=== PATIENT | female | born 1955 | race Caucasian/White ===

== ENCOUNTER 2019-02-25 10:06 | Day surgery (SDC) | payer MEDICARE, MEDICAID ==
[~2019-02-25] VITALS: Ht 165.1 cm; Wt 39.1 kg
[2019-02-25 10:55] VITALS: BP 130/79; Ht 165.1 cm; Wt 39.1 kg
[2019-02-25 11:11] LABS: CALC OSMOLALITY 286 mosm/kg (275-300); CALCIUM 9.5 mg/dL (8.5-10.1); CARBON DIOXIDE 35.7 mmol/L (21.0-32.0); CHLORIDE - SERUM 104 mmol/L (98-107); CREATININE - SERUM 0.6 mg/dL (0.6-1.3); GLUCOSE 85 mg/dL (74-106); POTASSIUM - SERUM 3.9 mmol/L (3.5-5.1); SODIUM 145 mmol/L (136-145); UREA NITROGEN 9 mg/dL (7-18); eGFR NON AFRICAN AMERICAN > 90 mL/min (90-120)
[2019-02-25 11:18] LABS: BASOPHILS 0.2 % (0-2); EOSINOPHILS 4.4 % (0-7); HEMATOCRIT 42.3 % (36.0-48.0); HEMOGLOBIN 13.9 g/dL (12-16); IMMATURE GRANULOCYTES 0.2 % (0-5); LYMPHOCYTES 26.3 % (15-50); MCH 30.3 pg (26.0-34.0); MCHC 32.9 g/dL (31.0-37.0); MCV 92.2 fL (80.0-100.0); MEAN PLATELET VOLUME 10.6 fL (7.4-10.4); MONOCYTES 6.8 % (2-11); NEUTROPHILS 62.1 % (40-80); PLATELET COUNT 175 10x3/uL (130-400); RBC 4.59 10x6/uL (4.00-5.40); RDW 14.1 % (11.5-14.5); WBC 5.4 10x3/uL (4.8-10.8)
[2019-02-25] MEDS ORDERED: ANORO ELLIPTA1 EACH INH ×2 (11:28→11:36)
[2019-02-25] MEDS ORDERED: ABILIFY2 MG PO (11:29)
[2019-02-25] MEDS ORDERED: CELEXA20 MG PO (11:31)
--- NOTE | 2019-02-25 13:40 | NUR ---
PT DC INSTRUCTIONS REVIEWED AT THIS TIME, PT VERBALIZES UNDERSTANDING AND AGREES. PT IV REMOVED AT THIS TIME, INTACT, NO REDNESS OR SWELLING NOTED AT SITE.
--- NOTE | 2019-02-25 13:47 | NUR ---
PT LEAVING OPS UNIT AT THIS TIME.
--- NOTE | 2019-03-01 16:05 | OP ---
PATIENT NAME: KEILY RODRIGUEZ MEDICAL RECORD: [id number] LOCATION:[facility] ADMISSION DATE: SURGEON: OSVALDO SHARMA DO DATE OF OPERATION: 02/25/2019 PROCEDURE: Colonoscopy with polypectomy. INDICATION FOR PROCEDURE: Hematochezia, gas, and bloating. SCOPE: [facility] video pediatric colonoscope. MEDICATIONS: Propofol 550 mg IV per anesthesia. WITHDRAWAL TIME: 24 minutes. ESTIMATED BLOOD LOSS: Minimal. COMPLICATIONS: None. FINDINGS: Informed consent was given. The patient was made comfortable with the above medication. After reaching an adequate level of sedation by slow IV push, the patient was placed on her left side. A digital rectal examination was performed and revealed some external hemorrhoids. The endoscope was advanced under direct visualization through the rectum to the cecum, confirmed by the presence of the appendiceal orifice and the ileocecal valve. The endoscope was slowly withdrawn and the mucosa was carefully examined. There was evidence of mild diverticulosis involving the sigmoid colon. There were multiple polyps visualized on today's examination. Two were located in the ascending colon. The larger of the 2 polyps measured approximately 1-1.2 cm and was sessile. It was removed using endoscopic mucosal resection technique with isotonic saline for a saline lift followed by hot snare polypectomy. There was another polyp in the ascending colon, which was slightly smaller. It was sessile, benign appearing, and measured approximately 6 mm in diameter. It was removed using a hot snare in one piece and completely retrieved. The polyp that was removed under EMR technique was reevaluated, and due to risk of bleeding, a single Endoclip was placed over the site for tissue positioning. The endoscope was then withdrawn further into the transverse colon, where a single benign-appearing sessile polyp was found. It measured approximately 5 mm in diameter. It was removed using a hot snare in one piece. In the descending colon, there was another polyp, which was benign appearing, sessile, and measured approximately 3 mm in diameter. It was removed and using hot forceps in one piece and retrieved. In the sigmoid colon, there were two separate polyps which were benign appearing and sessile. They ranged in size from 4-5 mm in diameter. They were both removed using a hot snare in one piece and completely retrieved. Retroflexion was performed in the rectum with visualization of grade III hemorrhoids. There was no active bleeding. The endoscope was withdrawn from the patient. The patient tolerated the procedure well and there were no complications. IMPRESSIONS: 1. Multiple polyps as described above, removed using a combination of EMR technique, hot snare, and hot forceps. 2. Mild diverticulosis of the sigmoid colon. 3. Grade III internal and external hemorrhoids without bleeding. OPERATIVE REPORT [id number] KEILY RODRIGUEZ PLANS AND RECOMMENDATIONS: 1. Discharge home when recovery parameters are met. 2. Follow up biopsy specimen results. 3. High-fiber diet. 4. Continue current medications. 5. Recall colonoscopy will be in 2-3 years based on number, types of polyps, and size of polyps removed today. 6. It would be okay to treat the patient's hemorrhoids when symptomatic periodically. If the patient wishes to definitively treat her current hemorrhoids, it would require surgical evaluation and treatment. I would recommend making sure she has plenty of fiber in her diet and consider supplementing her diet with one tablespoon of fiber daily to facilitate easier passage of bowel movements which can help with the hemorrhoids. TRANSINT:[id number] Voice Confirmation ID: [id number] DOCUMENT ID: [id number] OSVALDO SHARMA DO at 1605 CC: [id number] DICTATION DATE: 02/25/19 1257 [employer] MANAGER: 02/25/19 1340 [facility] 02/25/19 [facility] [address] [place] [address]
== END 2019-02-25 13:47 | disposition home or self-care (01) ==
LOC: D.OPS 10:06
PROVIDERS: Anesthesiology; ATTEND Internal Medicine Gastroenterology
DX: D12.2 Benign neoplasm of ascending colon (principal); D12.3 Benign neoplasm of transverse colon; K63.5 Polyp of colon; K57.30 Diverticulosis of large intestine without perforation or abscess without bleeding; K64.2 Third degree hemorrhoids; Z01.812 Encounter for preprocedural laboratory examination